=== PATIENT | male | born 1970 | race Caucasian/White ===

== ENCOUNTER 2020-08-03 23:49 | Observation (INO) ==
[2020-08-04] MEDS ORDERED: Pantoprazole 40 MG VIAL IVP ONE (00:14)
[2020-08-04] MEDS ORDERED: Ondansetron 4 MG/2 ML VIAL IVP ONE (00:14)
[2020-08-04] MEDS ORDERED: Isovue-370 500 ML BOTTLE IVP ONE ×2 (00:15→12:27)
[2020-08-04 01:12] LABS: Basophils % 0.2 %; Eosinophils # 0.1 K/mcL (0.0-0.6); Eosinophils % 0.9 %; Hemoglobin 15.5 g/dL (12.9-16.9); Immature Granulocytes % 0.6 % (0-4); Lymphocytes # 2.8 K/mcL (0.6-4.6); Mean Corpuscular HGB Conc 34.4 g/dL (31.6-35.5); Mean Corpuscular Hemoglobin 30.6 pg (28.0-33.3); Mean Corpuscular Volume 88.9 fL (83.0-100.0); Mean Platelet Volume 11.4 fL (9.4-12.4); Monocytes # 0.8 K/mcL (0.0-1.3); Monocytes % 5.6 %; Platelet Count 228 K/mcL (140-400); Red Blood Count 5.06 M/mcL (4.19-5.50); Red Cell Distribution Width 11.9 % (11.5-14.5); Segmented Neutrophils % 73.7 %; White Blood Count 14.9 K/mcL (4.3-11.1)
[2020-08-04 01:23] LABS: Alanine Aminotransferase 20 Units/L (7-52); Albumin 4.9 g/dL (3.5-5.7); Alkaline Phosphatase 50 Units/L (34-104); Aspartate Amino Transferase 21 Units/L (13-39); BUN/Creatinine Ratio 15 (6-26); Bilirubin,Direct 0.1 mg/dL (0.0-0.2); Bilirubin,Indirect 0.4 mg/dL (0.0-1.0); Bilirubin,Total 0.5 mg/dL (0.3-1.0); Blood Urea Nitrogen 14 mg/dL (6-20); Calcium 9.4 mg/dL (8.6-10.3); Carbon Dioxide 26 mEq/L (23-29); Chloride 102 mEq/L (98-107); Globulin 2.5 g/dL (2.4-3.5); Glucose 147 mg/dL (70-105); Lipase 16 Units/L (11-82); Osmolality,Calculated 289 (280-300); Potassium 3.6 mEq/L (3.5-5.1); Sodium 138 mEq/L (136-145); Total Protein 7.4 g/dL (6.4-8.9); eGFR For African Americans > 60 (> 60); eGFR For Non-African Americans > 60 (> 60)
[2020-08-04 02:17] LABS: INR 0.9; Prothrombin Time 10.9 Seconds (9.4-12.1)
[2020-08-04] MEDS ORDERED: Metoclopramide 10 MG/2 ML VIAL IVP ONE (02:48)
[2020-08-04] MEDS ORDERED: *HR* LORazepam 2 MG/ML VIAL IVP ONE (04:49)
[2020-08-04] MEDS ORDERED: Naloxone 0.4 MG/ML INJ IVP PRN (05:26)
[2020-08-04] MEDS ORDERED: Ondansetron 4 MG/2 ML VIAL IVP PRN (05:26)
[2020-08-04] MEDS ORDERED: Gadolinium Contrast Agent (WT Based) IV PRN (05:28)
[2020-08-04] MEDS ORDERED: Perflutren Lipid Microsphere 1.3 ML in 0.9 % Sodium Chloride 8.7 ML IVP PRN ×2 (05:28→12:24)
[2020-08-04] MEDS: Acetaminophen 325 MG TABLET PO PRN ×2 (06:33→23:16)
[2020-08-04] MEDS: Ringers Solution, Lactated 1,000 ML IVC SCH ×2 (06:34→19:48)
[2020-08-04] MEDS: lisinopriL 10 MG TABLET PO SCH (13:49)
[2020-08-04] MEDS: *HR* Heparin 5,000 UNIT/ML VIAL SQ SCH (18:32)
[2020-08-05 01:27] LABS: Hematocrit 41.1 % (37.5-50.1); Hemoglobin 14.3 g/dL (12.9-16.9); Mean Corpuscular HGB Conc 34.8 g/dL (31.6-35.5); Mean Corpuscular Volume 89.2 fL (83.0-100.0); Platelet Count 213 K/mcL (140-400); Red Blood Count 4.61 M/mcL (4.19-5.50); Red Cell Distribution Width 11.9 % (11.5-14.5); White Blood Count 11.5 K/mcL (4.3-11.1)
[2020-08-05 01:45] LABS: Chol/HDL Ratio 5.3 (0-4.9)
[2020-08-05 01:46] LABS: BUN/Creatinine Ratio 13 (6-26); Blood Urea Nitrogen 11 mg/dL (6-20); Calcium 9.1 mg/dL (8.6-10.3); Carbon Dioxide 25 mEq/L (23-29); Chloride 104 mEq/L (98-107); Glucose 105 mg/dL (70-105); Osmolality,Calculated 284 (280-300); Potassium 3.7 mEq/L (3.5-5.1); Sodium 137 mEq/L (136-145); eGFR For African Americans > 60 (> 60); eGFR For Non-African Americans > 60 (> 60)
[2020-08-05 04:12] LABS: Estimated Average Glucose 100 mg/dl
[2020-08-05] MEDS: *HR* Heparin 5,000 UNIT/ML VIAL SQ SCH (05:34)
[2020-08-05 07:05] VITALS: BP 113/64
[2020-08-05] MEDS: lisinopriL 10 MG TABLET PO SCH (08:06)
[2020-08-05] MEDS ORDERED: Aspirin Enteric Coated 81 MG Tablet PO SCH (09:00)
[2020-08-05] MEDS ORDERED: Aspirin Enteric Coated 325 MG Tablet PO ONE (12:45)
== END 2020-08-05 11:55 | disposition home or self-care (01) ==
LOC: 3BNU 23:49 → EMEROOARM 23:49 → SUATTDRO 08-04 05:09 → 3BNU 08-04 05:30
PROVIDERS: ADMIT Internal Medicine; ATTEND Internal Medicine